=== PATIENT | female | born 1995 | race Caucasian/White ===

== ENCOUNTER 2017-06-27 16:22 | Emergency (ER) | payer MEDICAID ==
[~2017-06-27] VITALS: Ht 167.6 cm; Wt 57.1 kg
[~2017-06-27 16:22] MED LIST: BACTRIM DS TAB1 EACH PO; HYDROXYZINE HCL50 MG PO; PREDNISONE 10 M10 MG PO
[2017-06-27] MEDS ORDERED: NORCO 5-325 TA1 EAC1 PO (16:40)
[2017-06-27] MEDS ORDERED: PENICILLIN VK500 MG PO (16:40)
[2017-06-27] MEDS ORDERED: NAPROSYN500 MG PO (16:40)
== END 2017-06-27 17:16 | disposition home or self-care (01) ==
LOC: M.ERS 16:22
DX: K02.9 Dental caries, unspecified (principal); K05.10 Chronic gingivitis, plaque induced; F17.210 Nicotine dependence, cigarettes, uncomplicated; F31.9 Bipolar disorder, unspecified

== ENCOUNTER 2018-06-10 17:56 | Emergency (ER) | payer OTHER, MEDICAID ==
[~2018-06-10] VITALS: Ht 172.7 cm; Wt 59.0 kg
[~2018-06-10 17:56] MED LIST changes: +NAPROSYN500 MG PO; +NORCO 5-325 TA1 EAC1 PO; +PENICILLIN VK500 MG PO
[2018-06-10] MEDS ORDERED: NOHOMEMEDICATIONS (18:41)
[2018-06-10 18:56] LABS: URINE BILIRUBIN NEGATIVE (Negative); URINE BLOOD 2+ (Negative); URINE CLARITY CLEAR; URINE COLOR STRAW; URINE GLUCOSE-RANDOM NEGATIVE (Negative); URINE KETONES NEGATIVE (Negative); URINE LEUKOCYTES-REFLEX 1+ (Negative); URINE NITRITE-REFLEX NEGATIVE (Negative); URINE PROTEIN NEGATIVE (Negative); URINE SPECIFIC GRAVITY <= 1.005 (1.005-1.030); URINE UROBILINOGEN 0.2 E.U./dl (0.2-1.0)
[2018-06-10 19:04] LABS: SQUAMOUS >10 Many /LPF (0-3)
[2018-06-10 19:06] LABS: BACTERIA-REFLEX 1-9 Few /HPF (None Seen); MUCUS None Seen strn/LPF (None Seen); URINE RBC 3-10 Few /HPF (0-2); URINE WBC-REFLEX 0-5 Rare /HPF (0-5)
[2018-06-10 19:07] LABS: CASTS None Seen /LPF (None Seen); CRYSTALS None Seen /LPF (None Seen)
[2018-06-10 19:08] LABS: AMP/METHAMP Negative (Negative); BARBITURATES Negative (Negative); BENZODIAZEPINES Negative (Negative); COCAINE Negative (Negative); METHADONE Negative (Negative); OPIATES Negative (Negative); PCP Negative (Negative); THC Negative (Negative)
[2018-06-10 19:25] VITALS: BP 129/77
== END 2018-06-10 19:20 | disposition left against medical advice (07) ==
LOC: M.ERS 17:56
PROVIDERS: Nurse Practitioner Family
DX: R51 Headache (principal); F31.9 Bipolar disorder, unspecified; F17.210 Nicotine dependence, cigarettes, uncomplicated; Z79.899 Other long term (current) drug therapy

== ENCOUNTER 2018-08-28 14:27 | Emergency (ER) | payer OTHER, MEDICAID ==
[~2018-08-28] VITALS: Ht 167.6 cm; Wt 52.2 kg
[~2018-08-28 14:27] MED LIST changes: +NOHOMEMEDICATIONS
[2018-08-28 16:05] VITALS: BP 126/79
== END 2018-08-28 16:05 | disposition home or self-care (01) ==
LOC: M.ERS 14:27
DX: F31.9 Bipolar disorder, unspecified (principal); Z59.0 Homelessness

== ENCOUNTER 2018-09-10 15:41 | Emergency (ER) | payer OTHER, MEDICAID ==
[~2018-09-10] VITALS: Ht 167.6 cm; Wt 51.3 kg
[2018-09-10 16:25] LABS: ABSOLUTE BASOPHILS 0.1 thou/uL (0.0-0.2); ABSOLUTE EOSINOPHILS 0.2 thou/uL (0.0-0.7); ABSOLUTE LYMPHOCYTES 1.9 thou/uL (0.8-5.3); ABSOLUTE MONOCYTES 0.6 thou/uL (0.0-1.2); ABSOLUTE NEUTROPHILS 6.7 thou/uL (1.6-8.1); BASOPHILS 0.7 %; EOSINOPHILS 1.7 %; HEMATOCRIT 37.5 % (37.0-47.0); HEMOGLOBIN 12.6 gm/dL (12.0-15.0); LYMPHOCYTES 19.9 %; MCH 29.1 pg (26.0-34.0); MCHC 33.7 g/dL (28.0-37.0); MCV 86.4 fL (80.0-100.0); MONOCYTES 6.6 %; MPV 6.8 fl. (7.2-11.1); NUCLEATED RBCS 0 /100WBC; PLATELET COUNT* 362 thou/uL (150-400); POLYS 71.1 %; RBC 4.34 mil/uL (4.20-5.00); RDW-CV 13.6 % (10.5-14.5); WBC 9.4 thou/uL (4.0-11.0)
[2018-09-10 16:32] LABS: CALCIUM 8.7 mg/dL (8.5-10.1); CREATININE 0.7 mg/dL (0.6-1.3); POTASSIUM 3.5 mmol/L (3.5-5.1)
[2018-09-10 16:37] LABS: ALBUMIN 3.2 g/dL (3.4-5.0); TOTAL BILIRUBIN 0.1 mg/dL (<0.1-1.0)
[2018-09-10 16:39] LABS: SALICYLATE < 2.8 mg/dL (2.8-20.0)
[2018-09-10 16:40] LABS: ACETAMINOPHEN < 2 ug/mL (10-30); ALCOHOL < 10 mg/dL (<10)
[2018-09-10 17:18] LABS: URINE BILIRUBIN NEGATIVE (Negative); URINE BLOOD NEGATIVE (Negative); URINE CLARITY CLEAR; URINE COLOR YELLOW; URINE GLUCOSE-RANDOM NEGATIVE (Negative); URINE KETONES NEGATIVE (Negative); URINE LEUKOCYTES-REFLEX 1+ (Negative); URINE NITRITE-REFLEX NEGATIVE (Negative); URINE PROTEIN NEGATIVE (Negative); URINE SPECIFIC GRAVITY >= 1.030 (1.005-1.030); URINE UROBILINOGEN 0.2 E.U./dl (0.2-1.0)
[2018-09-10 17:25] LABS: AMP/METHAMP POSITIVE (Negative); BARBITURATES Negative (Negative); BENZODIAZEPINES Negative (Negative); COCAINE Negative (Negative); METHADONE Negative (Negative); OPIATES Negative (Negative); PCP Negative (Negative); THC POSITIVE (Negative)
[2018-09-10 17:28] LABS: BACTERIA-REFLEX >30 Many /HPF (None Seen); CASTS None Seen /LPF (None Seen); CRYSTALS None Seen /LPF (None Seen); SQUAMOUS NONE SEEN /LPF (0-3); URINE RBC None Seen /HPF (0-2); URINE WBC-REFLEX >25 Many /HPF (0-5)
[2018-09-11] MEDS ORDERED: BACTRIM DS TAB1 EACH PO (01:09)
[2018-09-11 01:34] VITALS: BP 101/62
== END 2018-09-11 01:20 | disposition home or self-care (01) ==
LOC: M.ERS 15:41
PROVIDERS: Emergency Medicine
DX: N39.0 Urinary tract infection, site not specified (principal); R41.82 Altered mental status, unspecified; F31.9 Bipolar disorder, unspecified; F17.210 Nicotine dependence, cigarettes, uncomplicated; K02.9 Dental caries, unspecified

== ENCOUNTER 2018-10-11 11:12 | Emergency (ER) | payer OTHER ==
[~2018-10-11] VITALS: Ht 167.6 cm; Wt 51.3 kg
[2018-10-11 11:19] VITALS: BP 132/73
== END 2018-10-11 11:47 | disposition left against medical advice (07) ==
LOC: M.ERS 11:12
DX: R51 Headache (principal); F17.210 Nicotine dependence, cigarettes, uncomplicated; F32.9 Major depressive disorder, single episode, unspecified; F41.9 Anxiety disorder, unspecified

== ENCOUNTER 2018-11-21 23:03 | Emergency (ER) | payer OTHER ==
[~2018-11-21] VITALS: Ht 167.6 cm; Wt 54.4 kg
[2018-11-21 23:19] LABS: ABSOLUTE BASOPHILS 0.1 thou/uL (0.0-0.2); ABSOLUTE EOSINOPHILS 0.1 thou/uL (0.0-0.7); ABSOLUTE LYMPHOCYTES 3.3 thou/uL (0.8-5.3); ABSOLUTE MONOCYTES 0.7 thou/uL (0.0-1.2); ABSOLUTE NEUTROPHILS 6.3 thou/uL (1.6-8.1); BASOPHILS 0.9 %; EOSINOPHILS 1.2 %; HEMATOCRIT 36.7 % (37.0-47.0); HEMOGLOBIN 12.7 gm/dL (12.0-15.0); LYMPHOCYTES 31.5 %; MCH 29.9 pg (26.0-34.0); MCHC 34.7 g/dL (28.0-37.0); MCV 86.2 fL (80.0-100.0); MPV 7.7 fl. (7.2-11.1); NUCLEATED RBCS 0 /100WBC; PLATELET COUNT* 290 thou/uL (150-400); POLYS 59.4 %; RBC 4.26 mil/uL (4.20-5.00); RDW-CV 13.5 % (10.5-14.5); WBC 10.5 thou/uL (4.0-11.0)
[2018-11-21 23:30] LABS: CALCIUM 9.5 mg/dL (8.5-10.1); CREATININE 0.9 mg/dL (0.6-1.3); POTASSIUM 3.2 mmol/L (3.5-5.1)
[2018-11-21 23:34] LABS: ALBUMIN 4.1 g/dL (3.4-5.0); TOTAL BILIRUBIN 0.7 mg/dL (<0.1-1.0); TOTAL PROTEIN 7.9 g/dL (6.4-8.2)
[2018-11-22 00:04] VITALS: BP 95/57
== END 2018-11-22 00:06 | disposition home or self-care (01) ==
LOC: M.ERS 23:03
PROVIDERS: Personal Emergency Response Attendant
DX: R41.82 Altered mental status, unspecified (principal); F17.210 Nicotine dependence, cigarettes, uncomplicated; F31.9 Bipolar disorder, unspecified

== ENCOUNTER 2019-03-09 21:13 | Emergency (ER) | payer OTHER ==
[~2019-03-09] VITALS: Ht 162.6 cm; Wt 64.4 kg
[2019-03-09 21:34] LABS: URINE BILIRUBIN NEGATIVE (Negative); URINE BLOOD NEGATIVE (Negative); URINE CLARITY CLEAR; URINE COLOR YELLOW; URINE GLUCOSE-RANDOM NEGATIVE (Negative); URINE KETONES NEGATIVE (Negative); URINE LEUKOCYTES-REFLEX 2+ (Negative); URINE NITRITE-REFLEX NEGATIVE (Negative); URINE PROTEIN NEGATIVE (Negative); URINE SPECIFIC GRAVITY 1.015 (1.005-1.030); URINE UROBILINOGEN 0.2 E.U./dl (0.2-1.0)
[2019-03-09 21:40] LABS: MUCUS None Seen strn/LPF (None Seen); SQUAMOUS >10 Many /LPF (0-3)
[2019-03-09 21:44] LABS: CASTS None Seen /LPF (None Seen); CRYSTALS None Seen /LPF (None Seen)
[2019-03-09 21:46] LABS: URINE RBC None Seen /HPF (0-2)
[2019-03-09] MEDS ORDERED: BACTRIM DS TAB1 EACH PO (22:20)
[2019-03-09 22:43] VITALS: BP 137/100
== END 2019-03-09 22:44 | disposition home or self-care (01) ==
LOC: M.ERS 21:13
PROVIDERS: Emergency Medicine
DX: S01.511A Laceration without foreign body of lip, initial encounter (principal); R22.0 Localized swelling, mass and lump, head; A59.01 Trichomonal vulvovaginitis; F32.9 Major depressive disorder, single episode, unspecified; F17.210 Nicotine dependence, cigarettes, uncomplicated; Y08.89XA Assault by other specified means, initial encounter; Y93.89 Activity, other specified; Y92.89 Other specified places as the place of occurrence of the external cause; Y99.8 Other external cause status